=== PATIENT | male | born 1985 | race Caucasian/White ===

== ENCOUNTER 2017-11-12 18:25 | Inpatient (IN) | payer SELFPAY ==
[~2017-11-12] VITALS: Ht 185.4 cm; Wt 100.3 kg
[2017-11-12] MEDS ORDERED: ETOMIDATE 20 MG/10 ML VIAL ONE (18:30)
[2017-11-12] MEDS ORDERED: HYDROmorphone HCL PF 2 MG/ML VIAL ONE (18:30)
[2017-11-12] MEDS ORDERED: ceFAZolin 2 GM PREMIX 50 ML ONE ×2 (18:31→20:57)
[2017-11-12] MEDS ORDERED: DIPHTH/TETANUS/ACEL PERTUSSIS (BOOSTER) 0.5 ML VIAL/PFS IM ONE (18:31)
[2017-11-12 18:47] VITALS: O2SAT 96
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
[2017-11-12 18:55] LABS: AUTOMATED NEUTROPHIL # 10.9 TH/MM3 (1.8-7.7); BASOPHIL # 0.1 TH/MM3 (0-0.2); BASOPHIL % 0.5 % (0.0-2.0); EOSINOPHIL # 0.2 TH/MM3 (0-0.4); EOSINOPHIL % 1.4 % (0.0-4.0); HEMATOCRIT 44.5 % (39.0-51.0); HEMOGLOBIN 15.6 GM/DL (13.0-17.0); LYMPH % 29.2 % (9.0-44.0); MEAN CELL VOLUME 90.7 FL (80.0-100.0); MEAN CORPUSCULAR HEMOGLOBIN 31.8 PG (27.0-34.0); MEAN CORPUSCULAR HGB CONC 35.1 % (32.0-36.0); MEAN PLATELET VOLUME 8.3 FL (7.0-11.0); MONO % 5.7 % (0.0-8.0); NEUT % 63.2 % (16.0-70.0); PLATELET COUNT 250 TH/MM3 (150-450); RED CELL DISTRIBUTION WIDTH 12.3 % (11.6-17.2); WHITE BLOOD COUNT 17.3 TH/MM3 (4.0-11.0)
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
[2017-11-12] MEDS ORDERED: SENNOSIDES 8.6 MG TAB PO PRN (19:15)
[2017-11-12] MEDS ORDERED: BISACODYL 10 MG SUPP RECTAL PRN (19:15)
[2017-11-12] MEDS ORDERED: MISCELLANEOUS NURSING INFORMATION XX SCH (19:15)
[2017-11-12] MEDS ORDERED: CHLORHEXIDINE GLUCONATE 2 % 1 PACK (2 CLOTHS) TOP PRN (19:15)
[2017-11-12] MEDS ORDERED: MAGNESIUM HYDROXIDE SUSP 30 ML CUP PO PRN (19:15)
[2017-11-12] MEDS ORDERED: LACTULOSE SYRUP 20 GM/30 ML CUP PO PRN (19:15)
[2017-11-12] MEDS ORDERED: ONDANSETRON HCL 4 MG/2 ML VIAL IV PUSH PRN (19:15)
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
[2017-11-12] MEDS ORDERED: MORPHINE SULFATE 4 MG/ML INJ IV SCH (19:30)
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
[2017-11-12] MEDS ORDERED: IOHEXOL 350 MG/ML 10 ML VIAL (for RAD DIAG) IVCONTRAST ONE (19:39)
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
[2017-11-12 20:00] VITALS: BP 156/89; PULSE 100; PULSE 101; RESP 22; TEMP 98.8; O2SAT 97
[2017-11-12] MEDS ORDERED: MIDAZOLAM HCL 2 MG/2 ML VIAL ONE (20:38)
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
[2017-11-12] MEDS: SODIUM CHLOR 0.9% 1000 ML INJ 1,000 ML IV SCH (21:00)
--- NOTE | 2017-11-12 21:18 | PD.RAD ---
Post Procedure Progress Note Pre Procedure Diagnosis: (1) Minor contusion of spleen (2) Femur fracture, right Post Procedure Diagnosis: (1) Minor contusion of spleen (2) Femur fracture, right Procedure Date: Nov 12, 2017 Supervising Radiologist: Chucky Givens Estimated blood loss: 2cc Anesthesia: Local, Conscious Sedation Plan of Activity Patient to Unit: Critical Care Patient Condition: Good Additional Comments: Ct exam demonstrated a splenic contusion off the upper pole of the spleen with active bleeding No active bleeding evident by angio. arterial inflo to upper pole of the spleen pruned down with 1cc of gelfoam Pt. tolerated the procedure well. Full dictated report to follow See PACS Report for procedural detail/treatment Chucky Givens MD Nov 12, 2017 21:18
[2017-11-12] MEDS ORDERED: IODIXANOL 320 MG/ML 50 ML VIAL (for RAD SPEC) I-ARTERIAL ONE (21:26)
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
[2017-11-12 22:00] VITALS: PULSE 96
[2017-11-12] MEDS: DOCUSATE SODIUM 50 MG/SENNA 8.6 MG TAB PO SCH (22:00)
[2017-11-12] MEDS: ACETAMINOPHEN 1000 MG/100 ML 100 ML IV SCH (22:44)
[2017-11-12] MEDS: MORPHINE SULFATE 2 MG/ML INJ IV PUSH PRN (22:44)
[2017-11-13] VITALS (10 sets, daily range): BP systolic 138–159; BP diastolic 75–94; PULSE 83–104; RESP 17–24; TEMP 96.6–99.7; O2SAT 93–99
[2017-11-13] MEDS: ACETAMINOPHEN 1000 MG/100 ML 100 ML IV SCH ×3 (02:42→15:52)
[2017-11-13] MEDS: MORPHINE SULFATE 2 MG/ML INJ IV PUSH PRN ×6 (02:47→22:11)
[2017-11-13] MEDS: CHLORHEXIDINE GLUCONATE 2 % 1 PACK (2 CLOTHS) TOP SCH (04:00)
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
[2017-11-13] MEDS: SODIUM CHLOR 0.9% 1000 ML INJ 1,000 ML IV SCH ×2 (07:00→17:36)
[2017-11-13 07:24] LABS: AUTOMATED NEUTROPHIL # 12.5 TH/MM3 (1.8-7.7); BASOPHIL % 0.2 % (0.0-2.0); EOSINOPHIL % 0.1 % (0.0-4.0); HEMATOCRIT 33.7 % (39.0-51.0); HEMOGLOBIN 11.7 GM/DL (13.0-17.0); LYMPH % 8.9 % (9.0-44.0); LYMPHOCYTE # 1.3 TH/MM3 (1.0-4.8); MEAN CELL VOLUME 91.2 FL (80.0-100.0); MEAN CORPUSCULAR HEMOGLOBIN 31.6 PG (27.0-34.0); MEAN CORPUSCULAR HGB CONC 34.7 % (32.0-36.0); MEAN PLATELET VOLUME 8.6 FL (7.0-11.0); MONOCYTE # 1.2 TH/MM3 (0-0.9); NEUT % 82.8 % (16.0-70.0); PLATELET COUNT 264 TH/MM3 (150-450); RED BLOOD COUNT 3.69 MIL/MM3 (4.50-5.90); RED CELL DISTRIBUTION WIDTH 12.5 % (11.6-17.2); WHITE BLOOD COUNT 15.1 TH/MM3 (4.0-11.0)
[2017-11-13 07:36] LABS: BICARBONATE 25.8 MEQ/L (21.0-32.0); CALCIUM 7.9 MG/DL (8.5-10.1); CREATININE 0.75 MG/DL (0.60-1.30)
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
[2017-11-13] MEDS: DOCUSATE SODIUM 50 MG/SENNA 8.6 MG TAB PO SCH ×2 (09:00→20:18)
[2017-11-13] MEDS: FAMOTIDINE 20 MG TAB PO SCH ×2 (09:00→20:18)
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
[2017-11-13] MEDS ORDERED: KETAMINE HCL 500 MG/5 ML VIAL ONE (10:03)
[2017-11-13] MEDS ORDERED: ACETAMINOPHEN 1000 MG/100 ML 100 ML IV ONE (10:03)
[2017-11-13] MEDS ORDERED: VANCOMYCIN HCL 1000 MG VIAL ONE (10:11)
[2017-11-13] MEDS ORDERED: GENTAMICIN SULFATE 80 MG/2 ML VIAL ONE (10:11)
[2017-11-13] MEDS ORDERED: ceFAZolin INJ 1,000 MG VIAL ONE (10:47)
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
--- NOTE | 2017-11-13 11:51 | PD.OP ---
cc: Edi Hurd MD Operative Report Date of Surgery: Nov 13, 2017 Preoperative Diagnosis: Displaced right midshaft femur fracture Postoperative Diagnosis: Procedure: Reduction and intramedullary nail fixation right femur Anesthesia: Gen. Surgeon: Edi Hurd Check Out Clerk(s): NORIS Borges PA-C The surgical procedure was assisted by my physician medical receptionist medical assistant. My P.A. presence was necessary throughout this case for the manipulation and positioning of the surgical extremity. My P.A. was assisting me throughout the duration of this procedure. The skill set of a physician medical receptionist medical assistant was medically necessary to complete this procedure. During the surgical case the surgical specialist was working at the back table and the physician medical receptionist medical assistant was directly assisting me. Operation and Findings: Implants used: [10]mm x [400]mm Synthes femoral nail Plan of activity: Weight-bear as tolerated Patient was seen and evaluated preoperatively. The patient has significant hip pain from femur shaft fracture. The risk and benefits of surgery were discussed in depth with the patient to include bleeding, infection, nonunion, malunion, painful hardware, as well as medical competitions including blood clots, stroke, heart attack, and . Informed consent was obtained. Operative site was marked. Patient was brought to the operating room and placed on fracture table. IV sedation was administered by anesthesiologist. Timeout procedure was performed. Hip and leg were prepped with alcohol followed by DuraPrep and draped in the usual sterile fashion. IV antibiotics were given prior to incision. Procedure began with reduction of fracture. Traction was applied. The leg was manipulated to achieve reduction. Excellent reduction was achieved. Fluoroscopy was used to confirm reduction. A two inch incision was made proximal to the trochanter. Subcutaneous tissue was dissected bluntly. Guidepin was placed into the piriformis fossa and advanced into the femoral canal. Fluoroscopy confirmed appropriate guidepin placement. A opening reamer was placed over the guidepin. A long ball tipped guide pin was now placed down the femoral canal into the center of the distal femur. The nail length was now measured. Fluoroscopy confirmed appropriate guidepin placement. Flexible reamers were now passed over the guidepin to ream the intramedullary canal. The Synthes nail was attached to the insertion handle. Nail was now placed over the guidepin into the femoral canal. Fluoroscopy confirmed appropriate nail placement. Small incisions were made over the lateral thigh for the proximal interlocking screws. Cannulas were placed through the insertion handle down to the femur. The screw holes were predrilled and screw lengths were measured. Appropriate length screws were now placed. Traction was released and compression was applied. Next, using perfect [place] tribes technique two distal interlocking screws were placed. Screw holes were predrilled and screw lengths were measured. Final fluoroscopy revealed well aligned fracture with well-placed hardware. Incision was closed with 3-0 Vicryl and manoj. Sterile dressings were applied. Patient was awakened and transferred to recovery room. Edi Hurd MD Nov 13, 2017 11:50
[2017-11-13] MEDS ORDERED: ONDANSETRON HCL 4 MG/2 ML VIAL IV ONE (12:00)
[2017-11-13] MEDS ORDERED: LACTATED RINGER'S 1000 ML INJ 1,000 ML IV ONE (12:00)
[2017-11-13] MEDS ORDERED: DEXAMETHASONE SOD PHOS 4 MG/ML VIAL IV ONE (12:00)
[2017-11-13] MEDS ORDERED: NEOSTIGMINE 5 MG/5 ML SYRINGE IV PUSH ONE (12:00)
[2017-11-13] MEDS ORDERED: PHENYLEPH/NS 1000 MCG/10 ML SYR IV ONE (12:00)
[2017-11-13] MEDS ORDERED: LIDOCAINE HCL 1% PF 5 ML SYRINGE OTHER ONE (12:00)
[2017-11-13] MEDS ORDERED: GLYCOPYRROLATE 1 MG/5 ML SYRINGE IV PUSH ONE (12:00)
[2017-11-13] MEDS ORDERED: diphenhydrAMINE HCL 25 MG CAP PO PRN (12:00)
[2017-11-13] MEDS ORDERED: MORPHINE SULFATE 4 MG/ML INJ IV PUSH PRN (12:00)
[2017-11-13] MEDS ORDERED: PROPOFOL 200 MG/20 ML AMP IV ONE (12:00)
[2017-11-13] MEDS ORDERED: DO NOT ADM ANY ANTICOAGULANT DRUGS PRN (12:05)
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
[2017-11-13] MEDS ORDERED: MIDAZOLAM HCL 2 MG/2 ML VIAL ONE (12:10)
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
--- NOTE | 2017-11-13 12:39 | PD.ORT.PN ---
Subjective Subjective Remarks POD 0 s/p IMN right femur stable in PACU Objective Vitals Vital Signs Date Time Temp Pulse Resp B/P (MAP) Pulse Ox O2 Delivery O2 Flow Rate FiO2 11/13/17 10:30 97 17 134/82 (99) 98 11/13/17 09:30 96 17 136/83 (100) 97 11/13/17 08:18 98.3 105 17 133/82 (99) 95 11/13/17 08:17 95 Nasal Cannula 2 11/13/17 07:56 97 Nasal Cannula 2.00 11/13/17 06:00 83 11/13/17 04:00 99.0 83 19 141/89 (106) 97 11/13/17 04:00 83 11/13/17 02:00 89 11/13/17 00:00 99.5 101 18 146/94 (111) 97 11/13/17 00:00 101 11/12/17 22:00 96 11/12/17 20:00 98.8 101 22 156/89 (111) 97 11/12/17 20:00 100 11/12/17 18:47 96 4.00 I/O 11/12/17 11/12/17 11/12/17 11/13/17 11/13/17 11/13/17 06:59 14:59 22:59 06:59 14:59 22:59 Output Total 1500 ml 200 ml Balance -1500 ml -200 ml Output Urine Total 1500 ml 200 ml Result Diagram: 11/13/17 0648 11/13/17 0648 Other Results Laboratory Tests Test 11/12/17 18:29 Prothromb Time International Ratio 1.0 RATIO Prothrombin Time 10.0 SEC (9.8-11.6) Imaging Last 24 hours Impressions Femur X-Ray 11/13/17 0000 Signed Impressions: Service Date/Time: Monday, November 13, 2017 11:36 - CONCLUSION: Intramedullary timothy fixation femoral shaft fracture Chao Garvey MD Chest X-Ray 11/13/17 0000 Signed Impressions: Service Date/Time: Monday, November 13, 2017 04:36 - CONCLUSION: 1. No acute abnormality or significant interval change. Lane Chatman MD Thoracic Spine CT 11/12/17 1827 Signed Impressions: Service Date/Time: October 18:48 - CONCLUSION: No acute disease. Thierno Farr Jr., MD Pelvis X-Ray 11/12/171826 Signed Impressions: Service Date/Time: October 18:27 - CONCLUSION: Unremarkable examination of the pelvis. Thierno Farr Jr., MD Maxillofacial CT 11/12/171826 Signed Impressions: Service Date/Time: October 18:42 - CONCLUSION: No acute disease. Thierno Farr Jr., MD Lumbar Spine CT 11/12/171826 Signed Impressions: Service Date/Time: October 18:48 - CONCLUSION: 1. No acute abnormality. 2. Degenerative changes at L4-L5. Thierno Farr Jr., MD Head CT 11/12/171826 Signed Impressions: Service Date/Time: October 18:42 - CONCLUSION: No acute disease. Thierno Farr Jr., MD Chest X-Ray 11/12/171826 Signed Impressions: Service Date/Time: October 18:27 - CONCLUSION: No acute disease. Thierno Farr Jr., MD Chest CT 11/12/171826 Signed Impressions: Service Date/Time: October 18:48 - CONCLUSION: 1. No acute intrathoracic abnormality. 2. Areas of dependent atelectasis. Thierno Farr Jr., MD Cervical Spine CT 11/12/171826 Signed Impressions: Service Date/Time: October 18:42 - CONCLUSION: No acute disease. Thierno Farr Jr., MD Abdomen/Pelvis CT 11/12/171826 Signed Impressions: Service Date/Time: October 18:48 - CONCLUSION: Small splenic laceration within the most cephalad portion of the spleen. A very small volume of blood is seen adjacent to the spleen. There are small foci of contrast within this blood suggesting active extravasation. This laceration does not extend towards the splenic hilum. Thierno Farr Jr., MD Objective Remarks RLE: dressings clean and dry. intact. +cap refill Assessment & Plan Assessment and Plan 1) Right Femoral Shaft Fx s/p IMN - POD 0 -WBAT -daily dressing changes POD 2 -DVT prophylaxis -scripts on chart -DC home with HHC when stable -f/u with Agrawal or PA in 2 weeks Jeremy Mortensen PA/Patient Relations Director PA Nov 13, 2017 12:38
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
[2017-11-13] MEDS ORDERED: WALKER/ADULT/FO1 MIS (12:41)
--- NOTE | 2017-11-13 14:01 | EKG ---
Date Performed: 11/13/2017 Time Performed: 03:09:50 PTAGE: 89 years EKG: Sinus rhythm . Normal ECG NO PREVIOUS TRACING DOCTOR: Ubaldo Ramirez Interpretating Date/Time 11/13/2017 14:00:26
[2017-11-13] MEDS: CALCIUM/VITAMIN D 250 MG/125 U TAB PO SCH ×2 (14:21→17:36)
[2017-11-13] MEDS: ENOXAPARIN SODIUM 40 MG/0.4 ML SYRINGE SQ SCH (14:21)
[2017-11-13] MEDS: ACETAMINOPHEN/HYDROcodone 325 MG/10 MG TAB PO PRN ×3 (14:21→23:33)
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
[2017-11-13] MEDS ORDERED: LIDOCAINE 2%/EPINEPHrine 1:100,000 20ML MDV OTHER ONE (16:45)
--- NOTE | 2017-11-13 21:53 | HHI.PR ---
Immediate Post Op Note Procedure Date: Nov 13, 2017 Pre Op Diagnosis: complex right lower lip laceration 2cm Post Op Diagnosis: flaco Surgeon: Escobar Lezama Station Operator(s): pt's nurse mora Procedure: closure of right lower lip laceration Complications: none Estimated blood loss: minimal Anesthesia: Local (2:%lidocaine with 1:100,000 epi 2cc) Patient Condition: Good Date/Time of Procedure: Other Escobar Lezama [facility] Nov 13, 2017 21:53
[2017-11-14] VITALS (7 sets, daily range): BP systolic 112–127; BP diastolic 56–71; PULSE 81–106; RESP 16–18; TEMP 96.9–99.3; O2SAT 91–95
[2017-11-14] MEDS: SODIUM CHLOR 0.9% 1000 ML INJ 1,000 ML IV SCH (02:02)
[2017-11-14] MEDS: MORPHINE SULFATE 2 MG/ML INJ IV PUSH PRN ×7 (02:04→22:05)
[2017-11-14] MEDS: ACETAMINOPHEN/HYDROcodone 325 MG/10 MG TAB PO PRN ×7 (02:54→22:12)
[2017-11-14] MEDS: CHLORHEXIDINE GLUCONATE 2 % 1 PACK (2 CLOTHS) TOP SCH (04:00)
[2017-11-14 04:09] LABS: AUTOMATED NEUTROPHIL # 10.1 TH/MM3 (1.8-7.7); BASOPHIL % 0.2 % (0.0-2.0); EOSINOPHIL % 0.1 % (0.0-4.0); HEMATOCRIT 23.8 % (39.0-51.0); HEMOGLOBIN 8.2 GM/DL (13.0-17.0); LYMPH % 12.2 % (9.0-44.0); LYMPHOCYTE # 1.6 TH/MM3 (1.0-4.8); MEAN CELL VOLUME 90.6 FL (80.0-100.0); MEAN CORPUSCULAR HEMOGLOBIN 31.2 PG (27.0-34.0); MEAN CORPUSCULAR HGB CONC 34.4 % (32.0-36.0); MEAN PLATELET VOLUME 8.4 FL (7.0-11.0); MONO % 10.3 % (0.0-8.0); MONOCYTE # 1.3 TH/MM3 (0-0.9); NEUT % 77.2 % (16.0-70.0); PLATELET COUNT 198 TH/MM3 (150-450); RED BLOOD COUNT 2.63 MIL/MM3 (4.50-5.90); RED CELL DISTRIBUTION WIDTH 12.3 % (11.6-17.2)
[2017-11-14 04:34] LABS: ALT (GPT) 32 U/L (12-78); AST (GOT) 47 U/L (15-37); BICARBONATE 26.8 MEQ/L (21.0-32.0); BLOOD UREA NITROGEN 10 MG/DL (7-18); CALCIUM 7.9 MG/DL (8.5-10.1); CHLORIDE 106 MEQ/L (98-107); GLOMERULAR FILTRATION RATE 97 ML/MIN (>89); GLUCOSE,RANDOM 134 MG/DL (74-106); SODIUM (NA) 141 MEQ/L (136-145)
[2017-11-14 04:36] LABS: ALKALINE PHOSPHATASE 28 U/L (45-117); TOTAL BILIRUBIN ADULT 0.5 MG/DL (0.2-1.0)
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
[2017-11-14] MEDS: CHLORHEXIDINE GLUCONATE 0.12% 15 ML CUP SWISH-SPIT SCH ×2 (09:00→18:00)
[2017-11-14] MEDS: REMOVE OLD PATCH T-DERMAL SCH (09:00)
[2017-11-14] MEDS: MAGNESIUM HYDROXIDE SUSP 30 ML CUP PO SCH ×2 (09:00→20:02)
[2017-11-14] MEDS: LACTULOSE SYRUP 20 GM/30 ML CUP PO SCH (09:00)
[2017-11-14] MEDS: DOCUSATE SODIUM 50 MG/SENNA 8.6 MG TAB PO SCH ×2 (09:00→20:01)
[2017-11-14] MEDS: FAMOTIDINE 20 MG TAB PO SCH ×2 (09:00→20:01)
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
[2017-11-14] MEDS: NICOTINE 7 MG/24 HR PATCH T-DERMAL SCH (09:38)
[2017-11-14] MEDS: CALCIUM/VITAMIN D 250 MG/125 U TAB PO SCH ×3 (09:39→18:37)
[2017-11-14] MEDS: CHOLECALCIFEROL (VIT D3) 5000 UNIT CAP PO SCH (09:39)
--- NOTE | 2017-11-14 12:23 | PD.ORT.PN ---
Subjective Subjective Remarks no new issues. Objective Vitals Vital Signs Date Time Temp Pulse Resp B/P (MAP) Pulse Ox O2 Delivery O2 Flow Rate FiO2 11/14/17 08:21 92 Nasal Cannula 2.00 11/14/17 08:00 97.3 81 18 116/69 (85) 91 11/14/17 04:00 97.6 106 17 115/63 (80) 93 11/14/17 00:00 99.3 96 16 126/70 (88) 93 11/13/17 20:18 Room Air 11/13/17 20:00 96.8 90 17 138/77 (97) 94 11/13/17 18:22 Nasal Cannula 3.00 11/13/17 18:20 96.6 102 17 141/75 (97) 99 11/13/17 16:00 98.6 104 17 141/75 (97) 95 11/13/17 16:00 104 11/13/17 13:30 98.7 104 20 159/87 (111) 93 11/13/17 13:30 104 11/13/17 13:00 106 18 148/87 (107) 95 Nasal Cannula 4 11/13/17 12:45 99 16 146/87 (106) 96 Nasal Cannula 4 11/13/17 12:30 96 15 138/89 (105) 97 Nasal Cannula 4 I/O 11/13/17 11/13/17 11/13/17 11/14/17 11/14/17 11/14/17 07:00 15:00 23:00 07:00 15:00 23:00 Intake Total 1500 ml 1980 ml 3656 ml Output Total 1500 ml 510 ml 1675 ml 1850 ml Balance -1500 ml 990 ml 305 ml 1806 ml Intake Oral 1380 ml 1200 ml IV Total 600 ml 2456 ml Other 1500 ml Output Urine Total 1500 ml 460 ml 1675 ml 1850 ml Estimated Blood Loss 50 ml # Bowel Movements 0 Result Diagram: 11/14/17 0343 11/14/17 0343 Imaging Last 24 hours Impressions Femur X-Ray 11/13/17 0000 Signed Impressions: Service Date/Time: Monday, November 13, 2017 11:36 - CONCLUSION: Intramedullary timothy fixation femoral shaft fracture Chao Garvey MD Chest X-Ray 11/13/17 0000 Signed Impressions: Service Date/Time: Monday, November 13, 2017 04:36 - CONCLUSION: 1. No acute abnormality or significant interval change. Lane Chatman MD Thoracic Spine CT 11/12/171826 Signed Impressions: Service Date/Time: October 18:48 - CONCLUSION: No acute disease. Thierno Farr Jr., MD Pelvis X-Ray 11/12/171826 Signed Impressions: Service Date/Time: October 18:27 - CONCLUSION: Unremarkable examination of the pelvis. Thierno Farr Jr., MD Maxillofacial CT 11/12/171826 Signed Impressions: Service Date/Time: October 18:42 - CONCLUSION: No acute disease. Thierno Farr Jr., MD Lumbar Spine CT 11/12/171826 Signed Impressions: Service Date/Time: October 18:48 - CONCLUSION: 1. No acute abnormality. 2. Degenerative changes at L4-L5. Thierno Farr Jr., MD Head CT 11/12/171826 Signed Impressions: Service Date/Time: October 18:42 - CONCLUSION: No acute disease. Thierno Farr Jr., MD Chest X-Ray 11/12/171826 Signed Impressions: Service Date/Time: October 18:27 - CONCLUSION: No acute disease. Thierno Farr Jr., MD Chest CT 11/12/171826 Signed Impressions: Service Date/Time: October 18:48 - CONCLUSION: 1. No acute intrathoracic abnormality. 2. Areas of dependent atelectasis. Thierno Farr Jr., MD Cervical Spine CT 11/12/171826 Signed Impressions: Service Date/Time: October 18:42 - CONCLUSION: No acute disease. Thierno Farr Jr., MD Abdomen/Pelvis CT 11/12/171826 Signed Impressions: Service Date/Time: October 18:48 - CONCLUSION: Small splenic laceration within the most cephalad portion of the spleen. A very small volume of blood is seen adjacent to the spleen. There are small foci of contrast within this blood suggesting active extravasation. This laceration does not extend towards the splenic hilum. Thierno Farr Jr., MD Objective Remarks RLE: dressings clean and dry. intact. +cap refill Assessment & Plan Assessment and Plan 1) Right Femoral Shaft Fx s/p IMN - POD 1 -WBAT -daily dressing changes POD 2 -DVT prophylaxis -scripts on chart -DC home with C when stable -f/u with [facility] or [facility] in 2 weeks Vinnie Harris Jr., MD Nov 14, 2017 12:23
[2017-11-14] MEDS: ENOXAPARIN SODIUM 40 MG/0.4 ML SYRINGE SQ SCH (14:00)
[2017-11-15] VITALS: BP 112/57; PULSE 91; RESP 17; TEMP 96; O2SAT 96
[2017-11-15] MEDS ORDERED: oxyCODONE/ACETAMINOPHEN 5 MG/325 MG TAB PO PRN (00:45)
[2017-11-15] MEDS: METHOCARBAMOL 500 MG TAB PO PRN ×2 (00:53→09:52)
[2017-11-15] MEDS: oxyCODONE/ACETAMINOPHEN 5 MG/325 MG TAB PO PRN ×4 (00:54→13:26)
[2017-11-15] MEDS: MORPHINE SULFATE 2 MG/ML INJ IV PUSH PRN ×2 (01:37→06:38)
[2017-11-15 04:55] VITALS: O2SAT 95
[2017-11-15 05:22] LABS: AUTOMATED NEUTROPHIL # 5.9 TH/MM3 (1.8-7.7); BASOPHIL % 0.4 % (0.0-2.0); EOSINOPHIL # 0.1 TH/MM3 (0-0.4); EOSINOPHIL % 1.1 % (0.0-4.0); HEMATOCRIT 22.3 % (39.0-51.0); HEMOGLOBIN 7.7 GM/DL (13.0-17.0); LYMPH % 27.3 % (9.0-44.0); LYMPHOCYTE # 2.6 TH/MM3 (1.0-4.8); MEAN CORPUSCULAR HEMOGLOBIN 31.6 PG (27.0-34.0); MEAN CORPUSCULAR HGB CONC 34.8 % (32.0-36.0); MEAN PLATELET VOLUME 8.2 FL (7.0-11.0); MONO % 9.1 % (0.0-8.0); MONOCYTE # 0.9 TH/MM3 (0-0.9); NEUT % 62.1 % (16.0-70.0); PLATELET COUNT 186 TH/MM3 (150-450); RED BLOOD COUNT 2.45 MIL/MM3 (4.50-5.90); RED CELL DISTRIBUTION WIDTH 12.7 % (11.6-17.2); WHITE BLOOD COUNT 9.5 TH/MM3 (4.0-11.0)
[2017-11-15 05:25] LABS: ALBUMIN 3.1 GM/DL (3.4-5.0); ALT (GPT) 38 U/L (12-78); AST (GOT) 58 U/L (15-37); BICARBONATE 28.2 MEQ/L (21.0-32.0); BLOOD UREA NITROGEN 10 MG/DL (7-18); CALCIUM 8.2 MG/DL (8.5-10.1); CHLORIDE 105 MEQ/L (98-107); CREATININE 0.82 MG/DL (0.60-1.30); GLOMERULAR FILTRATION RATE 109 ML/MIN (>89); GLUCOSE,RANDOM 99 MG/DL (74-106); SODIUM (NA) 140 MEQ/L (136-145)
[2017-11-15 05:26] LABS: ALKALINE PHOSPHATASE 32 U/L (45-117); TOTAL BILIRUBIN ADULT 0.7 MG/DL (0.2-1.0); TOTAL PROTEIN 6.4 GM/DL (6.4-8.2)
[2017-11-15 08:00] VITALS: BP 112/67; PULSE 88; RESP 18; TEMP 97.4; O2SAT 95
[2017-11-15] MEDS ORDERED: PERI PO (08:07)
[2017-11-15] MEDS ORDERED: MAGN30S PO (08:07)
[2017-11-15] MEDS: FAMOTIDINE 20 MG TAB PO SCH (08:58)
[2017-11-15] MEDS: DOCUSATE SODIUM 50 MG/SENNA 8.6 MG TAB PO SCH (08:58)
[2017-11-15] MEDS: CALCIUM/VITAMIN D 250 MG/125 U TAB PO SCH ×2 (08:59→13:26)
[2017-11-15] MEDS: CHLORHEXIDINE GLUCONATE 0.12% 15 ML CUP SWISH-SPIT SCH (08:59)
[2017-11-15] MEDS: CHOLECALCIFEROL (VIT D3) 5000 UNIT CAP PO SCH (08:59)
[2017-11-15] MEDS: NICOTINE 7 MG/24 HR PATCH T-DERMAL SCH (08:59)
[2017-11-15] MEDS: MAGNESIUM HYDROXIDE SUSP 30 ML CUP PO SCH (09:00)
[2017-11-15] MEDS: REMOVE OLD PATCH T-DERMAL SCH (09:00)
[2017-11-15] MEDS: LACTULOSE SYRUP 20 GM/30 ML CUP PO SCH (09:00)
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
[2017-11-15 10:42] VITALS: O2SAT 95
[2017-11-15] MEDS ORDERED: OXYC1TAB63 PO (11:53)
[2017-11-15] MEDS ORDERED: METH500T3 PO (11:53)
[2017-11-15] MEDS ORDERED: CRUTMIS25 (11:54)
[2017-11-15 12:00] VITALS: BP 116/81; PULSE 105; RESP 19; TEMP 97.1; O2SAT 95
--- NOTE | 2017-11-15 13:15 | PD.ORT.PN ---
Subjective Subjective Remarks no new issues. Objective Vitals Vital Signs Date Time Temp Pulse Resp B/P (MAP) Pulse Ox O2 Delivery O2 Flow Rate FiO2 11/15/17 10:42 95 Nasal Cannula 2.00 11/15/17 10:01 17 11/15/17 08:00 97.4 88 18 112/67 (82) 95 11/15/17 04:55 95 Nasal Cannula 2.00 11/15/17 00:00 96.0 91 17 112/57 (75) 96 11/14/17 20:00 97.8 82 18 127/71 (89) 95 11/14/17 16:00 96.9 85 17 112/56 (74) 94 I/O 11/14/17 11/14/17 11/14/17 11/15/17 11/15/17 11/15/17 07:00 15:00 23:00 07:00 15:00 23:00 Intake Total 3656 ml 960 ml 480 ml Output Total 1850 ml 850 ml Balance 1806 ml -850 ml 960 ml 480 ml Intake Oral 1200 ml 960 ml 480 ml IV Total 2456 ml Output Urine Total 1850 ml 850 ml # Voids 3 3 1 Result Diagram: 11/15/17 1233 11/15/17 0410 Imaging Last 24 hours Impressions Femur X-Ray 11/13/17 0000 Signed Impressions: Service Date/Time: Monday, November 13, 2017 11:36 - CONCLUSION: Intramedullary timothy fixation femoral shaft fracture Chao Garvey MD Chest X-Ray 11/13/17 0000 Signed Impressions: Service Date/Time: Monday, November 13, 2017 04:36 - CONCLUSION: 1. No acute abnormality or significant interval change. Lane Chatman MD Thoracic Spine CT 11/12/171826 Signed Impressions: Service Date/Time: October 18:48 - CONCLUSION: No acute disease. Thierno Farr Jr., MD Pelvis X-Ray 11/12/171826 Signed Impressions: Service Date/Time: October 18:27 - CONCLUSION: Unremarkable examination of the pelvis. Thierno Farr Jr., MD Maxillofacial CT 11/12/171826 Signed Impressions: Service Date/Time: October 18:42 - CONCLUSION: No acute disease. Thierno Farr Jr., MD Lumbar Spine CT 11/12/171826 Signed Impressions: Service Date/Time: October 18:48 - CONCLUSION: 1. No acute abnormality. 2. Degenerative changes at L4-L5. Thierno Farr Jr., MD Head CT 11/12/171826 Signed Impressions: Service Date/Time: , November 12, 2017 18:42 - CONCLUSION: No acute disease. Thierno Farr Jr., MD Chest X-Ray 11/12/171826 Signed Impressions: Service Date/Time: October 18:27 - CONCLUSION: No acute disease. Thierno Farr Jr., MD Chest CT 11/12/171826 Signed Impressions: Service Date/Time: October 18:48 - CONCLUSION: 1. No acute intrathoracic abnormality. 2. Areas of dependent atelectasis. Thierno Farr Jr., MD Cervical Spine CT 11/12/171826 Signed Impressions: Service Date/Time: October 18:42 - CONCLUSION: No acute disease. Thierno Farr Jr., MD Abdomen/Pelvis CT 11/12/171826 Signed Impressions: Service Date/Time: October 18:48 - CONCLUSION: Small splenic laceration within the most cephalad portion of the spleen. A very small volume of blood is seen adjacent to the spleen. There are small foci of contrast within this blood suggesting active extravasation. This laceration does not extend towards the splenic hilum. Thierno Farr Jr., MD Objective Remarks RLE: dressings clean and dry. intact. +cap refill Assessment & Plan Assessment and Plan 1) Right Femoral Shaft Fx s/p IMN - POD 2 no issues. asymptomatic anemia. hb 9 -WBAT -daily dressing changes -DVT prophylaxis -scripts on chart -DC home with outpatient PT -f/u with [facility] or [facility] in 2 weeks Vinnie Harris Jr., MD Nov 15, 2017 13:15
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
[2017-11-15] MEDS: ENOXAPARIN SODIUM 40 MG/0.4 ML SYRINGE SQ SCH (13:27)
== END 2017-11-15 15:35 | disposition home or self-care (01) | DRG 956 ==
LOC: NEPI 18:25 → NEDA 18:59 → EDBD 18:59 → N03B 19:09 → N06B 11-13 18:05
PROVIDERS: ADMIT Surgery Trauma Surgery; ATTEND Surgery Trauma Surgery
PROC: 04V43DZ Restriction of Splenic Artery with Intraluminal Device, Percutaneous Approach (ICD-10-PCS; 2017-11-12)
PROC: 0CQ1XZZ Repair Lower Lip, External Approach (ICD-10-PCS; 2017-11-13)
PROC: 0QS806Z Reposition Right Femoral Shaft with Intramedullary Internal Fixation Device, Open Approach (ICD-10-PCS; principal; 2017-11-13 10:40)
DX: S72.321A Displaced transverse fracture of shaft of right femur, initial encounter for closed fracture (principal); S36.039A Unspecified laceration of spleen, initial encounter; S27.322A Contusion of lung, bilateral, initial encounter; S36.020A Minor contusion of spleen, initial encounter; S06.0X9A Concussion with loss of consciousness of unspecified duration, initial encounter; S01.81XA Laceration without foreign body of other part of head, initial encounter; S01.511A Laceration without foreign body of lip, initial encounter; V43.52XA Car driver injured in collision with other type car in traffic accident, initial encounter; Y92.410 Unspecified street and highway as the place of occurrence of the external cause; K02.9 Dental caries, unspecified; K05.6 Periodontal disease, unspecified
CPT/HCPCS: 27502; 36246; 37243; 37244; 70450; 70486; 71045; 71260; 72125; 72129; 72132; 72170; 73551; 73552; 74177; 75726; 76000; 76937; 80048; 80053; 80307; 85014; 85018; 85025; 85610; 85730; 86850; 86900; 86901; 87641; 90471; 90715; 93005; 96374; 96375; 99152; 99153; 99291; C1713; C1760; C1769; C1887; C1894; G0390; J0131; J0690; J1100; J1170; J1580; J1650; J2250; J2270; J2370; J2405; J2710; J3010; J3370; J7030; J7120; L0150; L0172; Q9967

== ENCOUNTER 2017-11-22 11:47 | Emergency (ER) | payer SELFPAY ==
[~2017-11-22] VITALS: Ht 185.4 cm; Wt 92.0 kg
[~2017-11-22 11:47] MED LIST: CRUTMIS25; MAGN30S PO; METH500T3 PO; OXYC1TAB63 PO; PERI PO; WALKER/ADULT/FO1 MIS
[2017-11-22 11:49] VITALS: BP 125/81; PULSE 104; RESP 16; TEMP 98.5; O2SAT 100
[2017-11-22] MEDS ORDERED: XARE10TA PO (13:02)
[2017-11-22] MEDS ORDERED: AMOX250C CHEW (13:02)
[2017-11-22] MEDS ORDERED: SODIUM CHLORIDE 0.9% FLUSH 10 ML FLUSH IV FLUSH PRN (13:30)
[2017-11-22] MEDS ORDERED: ONDANSETRON HCL 4 MG/2 ML VIAL IVP ONE (13:30)
[2017-11-22] MEDS ORDERED: MORPHINE SULFATE 4 MG/ML INJ IV PUSH ONE (13:30)
[2017-11-22 13:57] VITALS: O2SAT 98
[2017-11-22 14:12] LABS: BASOPHIL # 0.1 TH/MM3 (0-0.2); BASOPHIL % 0.8 % (0.0-2.0); EOSINOPHIL # 0.5 TH/MM3 (0-0.4); EOSINOPHIL % 3.5 % (0.0-4.0); HEMATOCRIT 28.3 % (39.0-51.0); HEMOGLOBIN 9.6 GM/DL (13.0-17.0); LYMPH % 19.8 % (9.0-44.0); LYMPHOCYTE # 2.9 TH/MM3 (1.0-4.8); MEAN CELL VOLUME 91.5 FL (80.0-100.0); MEAN CORPUSCULAR HGB CONC 33.9 % (32.0-36.0); MEAN PLATELET VOLUME 7.5 FL (7.0-11.0); MONO % 7.2 % (0.0-8.0); NEUT % 68.7 % (16.0-70.0); PLATELET COUNT 515 TH/MM3 (150-450); RED BLOOD COUNT 3.09 MIL/MM3 (4.50-5.90); RED CELL DISTRIBUTION WIDTH 13.4 % (11.6-17.2); WHITE BLOOD COUNT 14.6 TH/MM3 (4.0-11.0)
[2017-11-22 14:32] LABS: BICARBONATE 28.6 MEQ/L (21.0-32.0); CREATININE 1.03 MG/DL (0.60-1.30)
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
[2017-11-22] MEDS ORDERED: IOHEXOL 350 MG/ML 10 ML VIAL (for RAD DIAG) IVCONTRAST ONE (15:00)
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
--- NOTE | 2017-11-23 18:57 | EKG ---
Date Performed: 11/22/2017 Time Performed: 12:06:58 PTAGE: 32 years EKG: Sinus rhythm NONSPECIFIC T-WAVE ABNORMALITY Since previous tracing, no significant change noted BORDERLINE ECG PREVIOUS TRACING : 11/13/2017 03.09 DOCTOR: Eugenio Cotto Interpretating Date/Time 11/23/2017 18:56:47
== END 2017-11-22 16:59 | disposition home or self-care (01) ==
LOC: NEPE 11:47
DX: R10.12 Left upper quadrant pain (principal); Z72.0 Tobacco use
CPT/HCPCS: 71275; 74177; 80048; 85025; 93005; 96374; 96375; 99285; J2270; J2405; Q9967